=== PATIENT | male | born 1955 | race Caucasian/White ===

== ENCOUNTER 2024-09-27 21:01 | Emergency (ER) | payer MEDICARE, SELFPAY ==
--- NOTE | ~2024-09-27 | CT_ITS ---
CLINICAL HISTORY: Left lower quadrant pain? Stone diverticulitis CT abdomen and pelvis with contrast Comparison: None Findings: No consolidation or effusion. 4 mm stone in the mid left ureter resulting in mild hydronephrosis. The liver, spleen, adrenals and pancreas are normal. No bowel obstruction, pneumoperitoneum, or pneumatosis. Sigmoid diverticulosis. No acute fracture. IMPRESSION: 4 mm stone in the mid left ureter resulting in mild hydronephrosis. This document has been electronically signed by: Peter Benton MD on 09/28/2024 00:04:04
[2024-09-27 21:17] VITALS: BP 182/90; PULSE 84; RESP 18; TEMP 36.5; O2SAT 97; BMI 25.0
[2024-09-27] MEDS: Ondansetron ODT 4 MG TAB.RAPDIS TRANSLINGU (21:23)
[2024-09-27 21:39] LABS: MANUAL DIFF FLAG NO
[2024-09-27 21:55] LABS: Alanine Aminotransferase 14 U/L (0-40); Albumin Level 4.2 g/dL (3.5-5.0); Alkaline Phosphatase 78 U/L (39-117); Anion Gap 14 (12-20); Aspartate Amino Transferase 27 U/L (5-37); Bilirubin Direct 0.1 mg/dL (0.0-0.5); Bilirubin Total 0.5 mg/dL (0.0-1.0); Blood Urea Nitrogen 27 mg/dL (9-16); Calcium 9.3 mg/dL (8.4-10.2); Carbon Dioxide 26 mmol/L (22-29); Chloride 106 mmol/L (96-108); Estimated Glomerular Filt Rate 59; Glucose Random 156 mg/dL (60-115); Lipase 15 U/L (8-78); Potassium 3.9 mmol/L (3.3-5.1); Sodium 142 mmol/L (135-145); Total Protein 7.5 g/dL (6.5-8.0)
[2024-09-27 22:02] LABS: Basophils Absolute Auto 0.1 X10*3/uL (0.0-0.2); Basophils Percent Auto 0.3 % (0-2); Eosinophils Percent Auto 0.2 % (0-4); Hematocrit 38.9 % (42.0-52.0); Hemoglobin 13.4 g/dl (14.0-18.0); Imm Gran Abs Auto 0.06 X10*3/uL (0.00-0.03); Imm Gran Pct Auto 0.4 % (0.0-0.4); Lymphocytes Percent Auto 11.5 % (20-40); Mean Corpuscular HGB Conc 34.4 g/dl (31.0-36.0); Mean Corpuscular Hemoglobin 29.7 pg (27.0-33.0); Mean Corpuscular Volume 86.3 fL (80.0-98.0); Mean Platelet Volume 11.1 fL (9.4-12.4); Monocytes Absolute Auto 0.6 X10*3/uL (0.1-1.2); Monocytes Percent Auto 3.3 % (2-11); Neutrophils Absolute Auto 14.2 x10*3/uL (2.0-8.3); Neutrophils Percent Auto 84.3 % (45-73); Platelet Count 265 X10*3/uL (160-400); Red Blood Count 4.51 X10*6/uL (4.60-5.80); Red Cell Distribution Width 13.9 % (11.0-16.0); White Blood Count 16.9 X10*3/uL (4.8-10.8)
[2024-09-27 22:12] VITALS: BP 198/67; PULSE 69; RESP 16; TEMP 36.4; O2SAT 98
[2024-09-27 22:22] LABS: Appearance Urine Cloudy; Color Urine Dark Yellow; Glucose Urine UA Negative (Negative); Leukocyte Esterase Urine Trace (Negative); Nitrite Urine Negative (Negative); PH 5.5 (5.0-9.0); Specific Gravity - Urine >= 1.030 (1.005-1.025); UMIC TRIGGER UACC YES; Urine Blood Large (3+) (Negative); Urine Ketones 80 mg/dL (Negative); Urine Protein 30 (1+) mg/dL (Neg-Trace)
--- NOTE | 2024-09-27 22:25 | ED.ABDPAIN ---
HPI - Abdominal Pain General Chief Complaint: Abdominal Pain Stated Complaint: vomiting,abd pain Time Seen by Provider: 09/27/24 22:25 Source: patient Mode of arrival: ambulatory Limitations: no limitations History of Present Illness ED Provider: HPI narrative: Patient's history of hypertension hypercholesteremia missed his medication for about a month no history of diverticulitis status post appendectomy complaining of pain in lower abdomen more on the left side since 18:30 associated with nausea and vomiting patient has similar pain a month ago lasted only for few hours did not seek any medical attention no prior history of kidney stone or dysuria or hematuria no history of diverticulitis patient does have a family history of kidney stone in his brother no abdominal distention no fever or chills Related Data Previous Rx's ?Medication ?Instructions ?Recorded ondansetron 4 mg disintegrating 4 mg PO Q6-8H PRN nausea and 09/28/24 tablet vomiting #7 tabs oxycodone 5 mg tablet 5 mg PO Q6H PRN pain #20 tabs 09/28/24 tamsulosin 0.4 mg capsule (Flomax) 0.4 mg PO BEDTIME #10 caps 09/28/24 Allergies Allergy/AdvReac Type Severity Reaction Status Date / Time No Known Allergies Allergy Unverified 09/27/24 21:20 Review of Systems Review of Systems Yes all other systems are reviewed and are negative [facility] Past Medical History Medical History (Updated 09/28/24 @ 00:34 by Mushtaq Higgins MD) Hyperlipidemia Hypertension Physical Exam ED Vital Signs: Vital Signs - 24 hr 09/27/24 21:17 09/27/24 22:12 09/27/24 22:49 Temperature 97.7 F 97.6 F Pulse Rate 84 69 75 Respiratory Rate 18 16 16 Blood Pressure 182/90 H 198/67 H 163/79 H Pulse Oximetry 97 98 96 Oxygen Delivery Method Room Air Room Air Room Air 09/28/24 00:27 09/28/24 00:55 Temperature 98.0 F 98.0 F Pulse Rate 73 73 Respiratory Rate 16 16 Blood Pressure 156/79 H 156/79 H Pulse Oximetry 98 98 Oxygen Delivery Method Room Air Room Air BMI result Body Mass Index 25.0 Appearance: Alert. Oriented X3. In moderate distress Eyes: No pallor or icterus ENT: Pharynx normal. Oral Mucosa moist Neck: Normal inspection. Neck supple. CVS: Normal heart rate and rhythm. Pulses normal. Respiratory: No respiratory distress. Equal air entry bilateral, no wheezing/rales/rhonchi Abdomen: Soft and guarding in left lower quadrant and suprapubic area no rebound tenderness. Bowel sounds are present, no mass palpable, L CVA tenderness Skin: Skin warm and dry. Normal skin color. Normal skin turgor. Extremities: No lower extremity edema. No calf tenderness Neuro: Oriented X 3. No motor deficit. No sensory deficit.No cerebellar signs , cranial nerves II-XII intact Medical Decision Making Medical Decision Making [facility] Narrative: Patient's left-sided pain workup showed 4 mm mid left ureteric stone with moderate hydronephrosis responded to pain medication feeling much better now will discharge patient home on analgesics advised to follow up with urologist Differential Diagnosis Differential Diagnoses: The differential diagnosis associated with the presentation includes Renal colic/diverticulitis/small bowel obstruction Lab Data [facility] Lab Attestation statement: I reviewed the patient's lab results. 09/27/24 21:32 09/27/24 21:32 Labs: Lab Results 09/27/24 09/27/24 09/27/24 Range/Units 21:32 22:16 22:50 WBC 16.9 H (4.8-10.8) X10*3/uL RBC 4.51 L (4.60-5.80) X10*6/uL Hgb 13.4 L (14.0-18.0) g/dl Hct 38.9 L (42.0-52.0) % MCV 86.3 (80.0-98.0) fL MCH 29.7 (27.0-33.0) pg MCHC 34.4 (31.0-36.0) g/dl RDW 13.9 (11.0-16.0) % Plt Count 265 (160-400) X10*3/uL MPV 11.1 (9.4-12.4) fL Immature Gran % (Auto) 0.4 (0.0-0.4) % Neut % (Auto) 84.3 H (45-73) % Lymph % (Auto) 11.5 L (20-40) % [place] % (Auto) 3.3 (2-11) % Eos % (Auto) 0.2 (0-4) % Baso % (Auto) 0.3 (0-2) % Lymph # (Auto) 2.0 (1.2-4.9) X10*3/uL [place] # (Auto) 0.6 (0.1-1.2) X10*3/uL Eos # (Auto) 0.0 (0.0-0.4) X10*3/uL Baso # (Auto) 0.1 (0.0-0.2) X10*3/uL Abs Immat Gran (auto) 0.06 H (0.00-0.03) X10*3/uL Absolute Neuts (auto) 14.2 H (2.0-8.3) x10*3/uL Absolute Nucleated RBC 0.000 (0.0-0.012) X10*3/uL Nucleated RBC % (auto) 0.0 (0.0-0.2) /100WBC Sodium 142 (135-145) mmol/L Potassium 3.9 (3.3-5.1) mmol/L Chloride 106 (96-108) mmol/L Carbon Dioxide 26 (22-29) mmol/L Anion Gap 14 (12-20) BUN 27 H (9-16) mg/dL Creatinine 1.22 (0.5-1.4) mg/dL Estim Creat Clear Calc 49.0 Estimated GFR 59 Random Glucose 156 H (60-115) mg/dL Lactic Acid 1.0 (0.5-2.0) mmol/L Calcium 9.3 (8.4-10.2) mg/dL Magnesium 2.0 (1.6-2.6) mg/dL Total Bilirubin 0.5 (0.0-1.0) mg/dL Direct Bilirubin 0.1 (0.0-0.5) mg/dL AST 27 (5-37) U/L ALT 14 (0-40) U/L Alkaline Phosphatase 78 (39-117) U/L Total Protein 7.5 (6.5-8.0) g/dL Albumin 4.2 (3.5-5.0) g/dL Lipase 15 (8-78) U/L Urine Color Dark Yellow Urine Appearance Cloudy Urine pH 5.5 (5.0-9.0) Ur Specific Grace >= 1.030 H (1.005-1.025) Urine Protein 30 (1+) H (Neg-Trace) mg/dL Urine Glucose (UA) Negative (Negative) mg/dL Urine Ketones 80 (Negative) mg/dL Urine Blood Large (3+) H (Negative) Urine Nitrite Negative (Negative) Ur Leukocyte Esterase Trace H (Negative) Urine RBC 6-10 H (0-2) /HPF Urine WBC 0-5 (0-5) /HPF Ur Squamous Epith Cells 3-5 (0-2) /HPF Calcium Oxalate Crystal Present Urine Bacteria None Seen (None Seen) Hyaline Casts 6-10 (0-2) /LPF Medications Administered Discontinued Medications Generic Name Dose Route Start Last Admin Trade Name Freq PRN Reason Stop Dose Admin Sodium Chloride 1,000 mls @ 999 mls/hr 09/27/24 22:40 09/28/24 00:39 Ns IV 09/27/24 23:40 Infused .Q1H1M ONE Infusion Iohexol 85 ml 09/27/24 23:10 09/27/24 23:11 Iohexol 350 Mg/Ml 100 Ml Infus..Btl IV 09/27/24 23:11 85 ml ONCE ONE Administration Ketorolac Tromethamine 30 mg 09/28/24 00:20 09/28/24 00:29 Ketorolac Tromethamine 30 Mg/Ml Vial IVPUSH 09/28/24 00:21 30 mg ONCE ONE Administration Morphine Sulfate 4 mg 09/27/24 22:42 09/27/24 22:56 Morphine Sulfate 4 Mg/Ml Cartridge IVPUSH 09/27/24 22:43 4 mg ONCE ONE Administration Protocol Ondansetron HCl 4 mg 09/27/24 21:20 09/27/24 21:23 Ondansetron Odt 4 Mg Tab.Rapdis TRANSLINGU 09/27/24 21:21 4 mg ONCE ONE Administration Tamsulosin HCl 0.4 mg 09/28/24 00:13 09/28/24 00:28 Tamsulosin Hcl 0.4 Mg Capsule PO 09/28/24 00:14 0.4 mg ONCE ONE Administration Discharge Plan Discharge Clinical Impression: Calculus of left ureter Patient Disposition: Home, Self-Care Instructions: Renal Colic (ED), Low Oxalate Diet (ED) Additional Instructions: Drink plenty of fluids Pain medication as prescribed Flomax daily Decrease intake of food containing oxalate Follow with urologist if not better Prescriptions: New ondansetron 4 mg tablet,disintegrating 4 mg PO Q6-8H PRN (Reason: nausea and vomiting) Qty: 7 0RF oxycodone 5 mg tablet 5 mg PO Q6H PRN (Reason: pain) Qty: 20 0RF Rx Instructions: Partial Fill upon patient request. tamsulosin [Flomax] 0.4 mg capsule 0.4 mg PO BEDTIME Qty: 10 0RF Referrals: Armen Griffin MD [Physician] - 1 week Interventions: ED Discharge Assessment Last Done: 09/28/24 00:55 Discharge Date/Time: 09/28/24 01:04 Print Language: Turkish
[2024-09-27 22:40] LABS: Bacteria Urine None Seen (None Seen); Calcium Oxalate Crystals Urine Present; WBC Urine 0-5 /HPF (0-5)
[2024-09-27 22:49] VITALS: BP 163/79; PULSE 75; RESP 16; O2SAT 96
[2024-09-27] MEDS: 0.9 % Sodium Chloride 1,000 ML 999 ML IV (22:50)
[2024-09-27] MEDS: Morphine Sulfate 4 MG/ML CARTRIDGE IVPUSH (22:56)
[2024-09-27] MEDS: iohexoL 350 MG/ML 100 ML INFUS..BTL 85 ML IV (23:11)
[2024-09-28 00:27] VITALS: BP 156/79; PULSE 73; RESP 16; TEMP 36.7; O2SAT 98
[2024-09-28] MEDS: Tamsulosin HCL 0.4 MG CAPSULE PO (00:28)
[2024-09-28] MEDS: Ketorolac Tromethamine 30 MG/ML VIAL IVPUSH (00:29)
[2024-09-28 00:55] VITALS: BP 156/79; PULSE 73; RESP 16; TEMP 36.7; O2SAT 98
== END 2024-09-28 01:04 | disposition home or self-care (01) ==
PROVIDERS: Emergency Provider Internal Medicine; PCP Internal Medicine
DX: N13.2 Hydronephrosis with renal and ureteral calculous obstruction (principal); R10.30 Lower abdominal pain, unspecified; R11.2 Nausea with vomiting, unspecified; Z79.899 Other long term (current) drug therapy
CPT/HCPCS: 36415; 74177; 80053; 80076; 81001; 82248; 83605; 83690; 83735; 85025; 87040; 96361; 96374; 96375; 99284; J1885; J2270; Q9967

== ENCOUNTER → 2024-09-27 22:40 | Outpatient (BNV) | payer MEDICARE, SELFPAY | PROVIDERS: Emergency Provider Internal Medicine; PCP Internal Medicine; Visit Provider Student in an Organized Health Care Education/Training Program | DX: N20.1 Calculus of ureter (principal) | CPT/HCPCS: 74177 ==